=== PATIENT | female | born 1975 | race Hispanic/Latino ===

== ENCOUNTER → 2018-12-20 | Outpatient (CLI) | payer OTHER ==
--- NOTE | 2018-12-20 17:38 | REP ---
Digital diagnostic bilateral mammography with CAD and focused left breast sonography: History: Mastodynia. The patient reports left breast pain since a stereotactic needle biopsy done May 2018 in the left breast. According to the patient, the biopsy result was benign. Comparison mammography April 18, 2018 from an outside facility. Mammographic findings: A skin marker is affixed to the site of a dermal bulge with redness found by the technologist in the area of the patient's breast pain at the site of the previous stereotactic biopsy. Breast parenchyma is heterogeneously dense in a pattern which may inhibit the sensitivity of mammography. This is unchanged and symmetric. There is a needle biopsy marker clip at the biopsy site in the upper outer quadrant on the left. There are fewer microcalcifications at this position in the left breast than there were on previous mammography from May 02, 2018 and April 18, 2018. No mass lesion is seen mammographically. No spiculation or architectural distortion is seen. No worrisome skin change is appreciated. Normal appearing lymph nodes are seen bilaterally. Sonographic findings: The left breast is scanned from 1 o'clock to 2 o'clock. At 2 o'clock the visible area on the skin was scanned. At this site there is a 4 x 3 x 1 mm cystic area in the dermis. This may be post biopsy change. In the breast, heterogeneous fibroglandular background echotexture is seen sonographically. There are two cysts at 1 o'clock, 1.3 cm from the nipple. These measure 13 and 6 mm in greatest diameter respectively. No suspicious sonographic finding. Impression: BIRADS category 2 benign findings. There are two cysts identified sonographically in the left breast at the 1 o'clock position, the largest of which measures 13 mm. There is a small cystic area in the dermis at the biopsy site which may be post biopsy change or seroma. Clinical follow-up is advised. Repeat screening mammography is recommended bilaterally in 1 year. BIRADS 2: BI-RADS/ACR category 2 mammogram. Benign Findings. This mammogram was interpreted with the aid of an FDA-approved computer-aided detection system. The patient states she had a clinical breast exam in November 2018. The patient letter being requested is m#[id number] . Electronically Signed by Elvis Esparza MD 12/20/2018 05:56 P
== END ==
LOC: M RAD 15:09
PROVIDERS: ATTEND Family Medicine
DX: Z12.31 Encounter for screening mammogram for malignant neoplasm of breast (principal)

== ENCOUNTER 2019-08-03 17:00 | Emergency (ER) | payer OTHER ==
[~2019-08-03] VITALS: Ht 165.1 cm; Wt 63.6 kg
[2019-08-03] MEDS ORDERED: KETOROLAC 60 MG/2 ML VIAL (J1885) IM ONE (17:30)
[2019-08-03] MEDS ORDERED: methocarbamoL 750 MG TAB PO ONE (17:30)
[2019-08-03] MEDS ORDERED: ROBA750T4 PO (18:37)
[2019-08-03] MEDS ORDERED: NAPR-885 PO (18:37)
[2019-08-03 18:41] VITALS: BP 122/74
== END 2019-08-03 18:41 | disposition home or self-care (01) ==
LOC: M ED 17:00
DX: M62.830 Muscle spasm of back (principal)
CPT/HCPCS: 96372; 99283; J1885

== ENCOUNTER → 2019-12-22 | Outpatient (CLI) | payer OTHER ==
[~2019-12-22] MED LIST: NAPR-885 PO; ROBA750T4 PO
--- NOTE | 2019-12-22 17:57 | REP ---
Digital diagnostic bilateral mammography with CAD and focused left breast sonography: History: The left breast lump. The patient reports that this has been present for 15 years. Comparison mammography December 20, 2018 and May 02, 2018 and April 17, 2018. Findings: Breast parenchyma is heterogeneously dense in a pattern which inhibits the sensitivity of mammography. Skin marker is affixed to the skin at the site of the palpable lump and this projects in the upper outer quadrant at the site where previous mammography showed microcalcifications which have been biopsied. Marker clip from the needle biopsy is seen underlying the skin at the site of the palpable lump. There are a few remaining microcalcifications which are less numerous than on the April 2018 prior mammographic images. No other area of microcalcification is seen. No mass or spiculation is observed here or elsewhere in either breast. Sonographic findings: Scanning in the left breast laterally at the area of palpable lump demonstrates two adjacent simple cysts. These measure 0.8 x 0.8 x 0.6 and 1.1 x 1.0 x 0.6 cm in greatest diameter. These meet criteria simple cyst by ultrasound. Impression: BIRADS category II benign bilateral breast imaging. Two simple cysts at the site of the palpable lump which the patient reports a stable times 15 years. There is a needle biopsy marker clip in this area of the left breast as well. Stable adjacent calcifications. BIRADS 2: BI-RADS/ACR category 2 mammogram. Benign Findings. This mammogram was interpreted with the aid of an FDA-approved computer-aided detection system. The patient states that she has not had a clinical breast exam in over a year. This patient's estimated Tyrer-Cuzick lifetime risk assessment for the breast cancer is 24.2 %. Enhanced screening in the form of annual bilateral breast MRI scanning is warranted. Bilateral breast MRI scanning is recommended annually, beginning 6 months from now.
== END ==
LOC: M WHC 13:39
PROVIDERS: ATTEND Family Medicine
DX: N63.20 Unspecified lump in the left breast, unspecified quadrant (principal)

== ENCOUNTER → 2021-07-01 | Outpatient (CLI) | payer OTHER ==
--- NOTE | 2021-07-04 08:44 | REP ---
INDICATION: CYST. COMPARISON: Mammogram 04/28/2021, ultrasound 12/22/2019. TECHNIQUE: Three [facility] MRI imaging was performed with a dedicated breast coil. Axial, coronal, and sagittal T1 and T2 weighted scans were obtained with and without fat saturation in the usual fashion. The study includes dynamically acquired post gadolinium-enhanced imaging with image subtraction. Maximum intensity projection and multi planar reformation imaging is included as well. This study is interpreted with the aid of [employer], an FDA approved computer aided detection (CAD) software program, on a dedicated breast MRI workstation. The gadolinium enhancement dose is 13 mL of intravenous ProHance. FINDINGS: There is extreme pattern of parenchymal tissue bilaterally. No axillary adenopathy is visualized. Multiple bilateral cysts are present, all are subcentimeter in size, except 1 cyst in the superior left breast measures 1.3 cm in maximum diameter. There is moderate background parenchymal enhancement bilaterally. There is no suspicious enhancing mass or morphologic abnormality. There is a 9 mm cyst in the lateral segment of the left lobe of the liver. IMPRESSION: BI-RADS category 2 benign bilateral breast MRI. Extreme pattern of parenchymal tissue with moderate background parenchymal enhancement. Multiple bilateral cysts. No suspicious enhancing mass or morphologic abnormality. <Electronically signed by Simba Uribe > 07/04/21 [id number]
== END ==
LOC: M RAD 14:12
PROVIDERS: ATTEND Family Medicine
DX: N60.11 Diffuse cystic mastopathy of right breast (principal); N60.12 Diffuse cystic mastopathy of left breast